=== PATIENT | male | born 1960 | race Caucasian/White ===

== ENCOUNTER 2024-01-02 05:57 | Day surgery (SDC) | payer OTHER, SELFPAY ==
[2023-12-03 08:52] VITALS: BMI 33.3
[2023-12-24 12:08] VITALS: BMI 34.2
[2024-01-02 06:35] VITALS: BP 168/105; PULSE 81; RESP 20; TEMP 37; O2SAT 95
--- NOTE | 2024-01-02 07:03 | PM.HPGS ---
History of Present Illness History of Present Illness Consent: Risks, benefits, and alternatives have been discussed and questions answered. Patient agrees to proceed with procedure. Chief complaint: positive cologuard Narrative: Omar Lockwood is a 63 year old male presents for screening colonoscopy. patient was found to have positive Cologuard test. Patient denies abdominal pain. He he has had no bleeding. Family history noncontributory. Review of Systems Review of Systems: Review of systems is noncontributory. [facility] Social History Social History Smoking status: Never smoker Alcohol intake: never Substance use: never Substance use type: does not use Living arrangements: with family Spiritual care concerns: No Meds Home Medications and Allergies Home Medications Medication Instructions Recorded Confirmed Type sodium,potassium,mag sulfates 17.5 See Rx Instructions PO .COMPLEX 12/03/23 12/24/23 Rx gram-3.13 gram-1.6 gram oral soln #354 mL (Suprep Bowel Prep Kit) aripiprazole 5 mg tablet 5 mg PO DAILY 12/24/23 01/02/24 History bupropion HCl 300 mg 24 hr tablet, 300 mg PO DAILY 12/24/23 01/02/24 History extended release vilazodone 40 mg tablet 40 mg PO DAILY 12/24/23 01/02/24 History hydrocodone 7.5 mg-acetaminophen 1 tablet PO Q6H PRN Pain 01/02/24 01/02/24 History 325 mg tablet Allergies Allergy/AdvReac Type Severity Reaction Status Date / Time No Known Allergies Allergy Verified 01/02/24 06:53 Exam Narrative: Physical is exam reveals patient to be alert. Vital signs stable. HEENT exam is unremarkable. Patient is anicteric. Lungs are clear to auscultation and percussion is without murmur extra sounds. Abdomen bowel sounds are present soft nontender with no organomegaly. Digital external rectal exam normal. Assessment and Plan Assessment and plan (1) Positive colorectal cancer screening using Cologuard test: Code(s): R19.5 - Other fecal abnormalities Status: Acute Assessment and Plan: Patient presents for screening colonoscopy. Recent Cologuard test was found to be positive suggesting higher chance of polyps.
--- NOTE | 2024-01-02 07:18 | P.PNAN_ITS ---
Anes - Initial Pre Proc Eval Procedure: Operation Date: 01/02/24 07:30 Proposed Procedures p Diagnostic Colonoscopy - Omar Baig MD Date/Time: 01/02/24 07:18 Surgeon: Omar Baig MD Pre Op Diagnosis: positive cologuard Patient Data Age: 63 Gender: M Height: 1.73 m Weight: 99.2 kg Allergies Allergy/AdvReac Type Severity Reaction Status Date / Time No Known Allergies Allergy Verified 01/02/24 06:53 Home Medications Medication Instructions Recorded Confirmed Type sodium,potassium,mag sulfates 17.5 See Rx Instructions PO .COMPLEX 12/03/23 12/24/23 Rx gram-3.13 gram-1.6 gram oral soln #354 mL (Suprep Bowel Prep Kit) aripiprazole 5 mg tablet 5 mg PO DAILY 12/24/23 01/02/24 History bupropion HCl 300 mg 24 hr tablet, 300 mg PO DAILY 12/24/23 01/02/24 History extended release vilazodone 40 mg tablet 40 mg PO DAILY 12/24/23 01/02/24 History hydrocodone 7.5 mg-acetaminophen 1 tablet PO Q6H PRN Pain 01/02/24 01/02/24 History 325 mg tablet Patient hx anesthesia problems: none Family hx anesthesia problems: none Results Review: All pre-operative results and documents have been reviewed as part of the pre- operative evaluation. [facility] Past Medical History Medical History (Updated 01/02/24 @ 07:19 by Shola Chauhan MD) Obesity Surgical History Surgical History (Updated 01/02/24 @ 07:19 by Shola Chauhan MD) H/O colonoscopy History of hydrocelectomy Social History Social History Smoking status: Never smoker Alcohol intake: never Substance use: never Substance use type: does not use Living arrangements: with family Spiritual care concerns: No Anes - Eval Final PreProcedure Day of Procedure 01/02/24 07:18 Patient weight: obese Heart: regular rate and rhythm Lungs: clear to auscultation Airway: Mallampati scale class 1 Neurological: alert and oriented Last oral intake: >/= 8 hours ASA classification: II Emergent: no Anesthetic plan: proceed Anesthesia type and monitoring: general GIVS and standard monitoring Results Review: All pre-operative results and documents have been reviewed as part of the pre- operative evaluation. Informed Consent: The patient's anesthetic plan and its attendant risks and benefits were discussed with the patient/family/POA. Questions were solicited and answers provided to the satisfaction of the patient/family/POA.
[2024-01-02] MEDS: LACTATED RINGERS 1,000 ML 150 ML IV CONT (07:30)
[2024-01-02 07:47] VITALS: BP 114/81; PULSE 64; RESP 16; O2SAT 96
[2024-01-02 07:57] VITALS: BP 100/81; PULSE 67; RESP 16; O2SAT 95
[2024-01-02 08:07] VITALS: BP 115/80; PULSE 68; RESP 16; O2SAT 96
--- NOTE | 2024-01-02 08:19 | WPDANESPN ---
Anes - Prog Note Post-Op Date/Time: 01/02/24 08:19 Cardiovascular status: normal Respiratory status: normal Airway patency: baseline Mental status: baseline Post-Op hydration status: normal Vital Signs: Last Vital Signs Temp 37.0 C 01/02/24 06:35 Pulse 68 01/02/24 08:07 Resp 16 01/02/24 08:07 BP 115/80 01/02/24 08:07 Pulse Ox 96 01/02/24 08:07 O2 Del Method Room Air 01/02/24 08:07 Pain Score (VAS): 0/10 I/O: Intake & Output 01/01/24 01/02/24 01/02/24 23:59 07:59 15:59 Intake Total 500 100 Balance 500 100 Patient Feedback: Patient satisfied with anesthetic care.
== END 2024-01-02 08:20 | disposition home or self-care (01) ==
PROVIDERS: Visit Provider Internal Medicine Gastroenterology
PROC: 0DJD8ZZ Inspection of Lower Intestinal Tract, Via Natural or Artificial Opening Endoscopic (ICD-10-PCS; CPT 45378; principal; 2024-01-02 07:30)
DX: R19.5 Other fecal abnormalities (principal); D12.2 Benign neoplasm of ascending colon; D12.3 Benign neoplasm of transverse colon; D12.4 Benign neoplasm of descending colon; K57.30 Diverticulosis of large intestine without perforation or abscess without bleeding; K64.8 Other hemorrhoids
CPT/HCPCS: 45385

== ENCOUNTER 2024-01-02 07:00 | Outpatient (NON) | payer OTHER, SELFPAY | END 2024-01-02 07:01 | disposition home or self-care (01) | PROVIDERS: Visit Provider Internal Medicine Gastroenterology | DX: R19.5 Other fecal abnormalities (principal) | CPT/HCPCS: 88305 ==

== ENCOUNTER 2024-03-05 20:07 | Observation (INO) | payer OTHER, SELFPAY ==
[2024-03-05] VITALS (16 sets, daily range): BP systolic 154–208; BP diastolic 88–96; PULSE 105–125; RESP 8–18; TEMP 36.7–36.8; O2SAT 76–100
--- NOTE | ~2024-03-05 | CT_ITS ---
EXAMINATION: CT brain wo con DATE: 03/05/2024 21:15 INDICATION: Altered mental status. Loss of consciousness. Fall. TECHNIQUE: Computed tomography (CT) of the head was performed without intravenous contrast. The mA wa s adjusted according to patient size. Iterative reconstruction technique was employed. The dose-lengt h product was 681.00 mGy-cm. COMPARISON: None FINDINGS: There is no intracranial hemorrhage, acute infarction, or abnormal intracranial mass lesion . The ventricles are normal in size. The mastoid air cells are normal. There is mild mucosal thickeni ng in the paranasal sinuses. The orbits are normal. There is a possible 7 mm aneurysm of anterior com municating artery. IMPRESSION: 1. Possible 7 mm aneurysm of anterior communicating artery. CTA is recommended. Reviewed, dictated and finalized at location E.
--- NOTE | ~2024-03-05 | XR_ITS ---
EXAMINATION: XR chest 1V portable DATE: 03/05/2024 20:51 INDICATION: Dyspnea. Hypoxia. TECHNIQUE: A single frontal view of the chest was obtained. COMPARISON: None. FINDINGS: There is no pneumonia, pleural effusion, or pneumothorax. The heart size is normal. There a re prominent paracardial fat pads. IMPRESSION: 1. No acute cardiopulmonary disease. Reviewed, dictated and finalized at location E.
--- NOTE | ~2024-03-05 | CT_ITS ---
EXAMINATION: CTA brain carotid DATE: 03/05/2024 22:07 INDICATION: Altered mental status. Cerebral aneurysm. TECHNIQUE: Computed tomographic angiography (CTA) of the head was performed with 100 mL Omnipaque-350 intravenous contrast. CTA of the neck was performed with intravenous contrast. Automated exposure co ntrol and iterative reconstruction technique were employed. The dose-length product was 1122.52 mGy-c m. Maximum intensity projection and volume rendered 3D-reconstructions were created by the [employer] on a separate workstation. COMPARISON: Head CT 03/05/2024 FINDINGS: HEAD CTA: There is no intracranial hemorrhage, acute infarction, or abnormal intracranial mass lesion . The ventricles are normal in size. The mastoid air cells are normal. There is mild mucosal thickeni ng in the paranasal sinuses. The orbits are normal. Right vertebral artery is dominant. There is no s ignificant stenosis of basilar artery or the posterior cerebral arteries. The posterior communicating arteries are normal. There is no significant stenosis of the intracranial internal carotid arteries or anterior or middle cerebral arteries. Anterior communicating artery is normal. There is no aneurys m. NECK CTA: There are no pathologically enlarged lymph nodes. There is no significant stenosis of the v ertebral arteries. There is mild plaque in the proximal internal carotid arteries. There is 0% stenos is of the proximal right internal carotid artery relative to normal distal artery lumen diameter (MAYKEL CET criteria). There is 0% stenosis of the proximal left internal carotid artery relative to normal d istal artery lumen diameter. There is severe cervical spondylosis. IMPRESSION: 1. Normal brain. 2. No aneurysm or significant intracranial calcinosis. 3. 0% stenosis of the proximal internal carotid arteries relative to normal distal artery lumen diame ters (NASCET criteria). Reviewed, dictated and finalized at location E. IMPRESSION: 1. Normal brain. 2. No aneurysm or significant intracranial calcinosis. 3. 0% stenosis of the proximal internal carotid arteries relative to normal dis bradley artery lumen diameters (NASCET criteria).
--- NOTE | 2024-03-05 20:17 | ECG_ITS ---
SEE SCANNED COPY FOR CONFIRMED REPORT MTDD
[2024-03-05] MEDS: NALOXONE HCL 0.4 MG/ML VIAL 0.2 MG IV PUSH ×3 (20:28→21:19)
[2024-03-05 20:32] LABS: Hematocrit 45.1 % (42.0-52.0); Hemoglobin 15.2 g/dL (14.0-18.0); Mean Corpuscular HGB Conc 33.7 g/dl (32-36); Mean Corpuscular Hemoglobin 29.1 pg (26-34); Mean Corpuscular Volume 86.2 fl (80-100); Mean Platelet Volume 9.8 fl (7.4-10.4); Platelet Count Result 426 k/mm3 (150-375); Red Blood Count 5.23 M/mm3 (4.6-6.20); Red Cell Distribution Width 13.3 % (11.5-14.5); White Blood Count 26.7 K/mm3 (4.5-10.0)
--- NOTE | 2024-03-05 20:38 | PC.NURSE ---
Patient presented to staff as altered and upon patient coming into ED room 3 patient was slow to respond and was nodding off with periods of apnea. Patient was A&Ox1 with being aroused to voice and painful stimuli. at bedside states that patient usually beats her home for work and was not present when she got home. said patient's boss called and stated patient was not acting right and fell (patient appears with an abrasion to nose). Patient's initial room air spo2% was 85%. Patient was then placed on 3L/min of oxygen via nasal cannula. Patient's SPO2% was then 88%. Patient was then placed on non-rebreather at 15L/min and had an SPO2% was 100%. EDP Dr. Hernández made aware of patient and advised to give 0.2mg of Narcan IVP. An 18 gauge IV was established in the left forearm and 0.2mg Narcan was administered. Patient became much more aware of surrounding and became A&Ox4 and taken off oxygen and had a SPO2% reading of 98 on room air. Patient states he did not want to hurt himself and denies SI/HI. Patient states he takes [place] 7.5 for his fibromyalgia and had old OxyContin that he took.
[2024-03-05 20:43] LABS: Alanine Aminotransferase 46 U/L (6-50); Albumin Level 4.8 g/dL (3.5-5.1); Alkaline Phosphatase 74 U/L (38-126); Anion Gap 9 mmol/L (4-12); Aspartate Amino Transferase 41 U/L (17-59); Bilirubin,Total 0.8 mg/dL (0.2-1.3); Blood Urea Nitrogen 24 mg/dL (9-20); Calcium 8.9 mg/dL (8.4-10.2); Carbon Dioxide 25 mmol/L (22-30); Chloride 105 mmol/L (98-107); Estimated CRCL calculation 59 ml/min; Estimated Glomerular Filt Rate 51; Glucose 199 mg/dL (65-110); Potassium 4.2 mmol/L (3.4-5.0); Prothrombin Time 13.1 Seconds (11.1-14.7); Sodium 139 mmol/L (137-145)
[2024-03-05 20:44] LABS: Partial Thromboplastin Time 22.9 Seconds (22.3-36.8)
--- NOTE | 2024-03-05 20:48 | ED.OVERDOSE ---
HPI - Overdose General Chief Complaint: Overdose Stated Complaint: altered Time Seen by Provider: 03/05/24 20:20 History of Present Illness HPI Narrative: Patient at work was starting to act strange, he was falling asleep, and then fell hit the ground, it was difficult to wake him up. Brought here, initially hypoxic and bradypneic. Related Data Home Medications Medication Instructions Recorded Confirmed aripiprazole 5 mg tablet 5 mg PO DAILY 12/24/23 01/02/24 bupropion HCl 300 mg 24 hr tablet, 300 mg PO DAILY 12/24/23 01/02/24 extended release vilazodone 40 mg tablet 40 mg PO DAILY 12/24/23 01/02/24 hydrocodone 7.5 mg-acetaminophen 1 tablet PO Q6H PRN Pain 01/02/24 01/02/24 325 mg tablet Allergies Allergy/AdvReac Type Severity Reaction Status Date / Time No Known Allergies Allergy Verified 01/02/24 06:53 Review of Systems Review of Systems: ROS unobtainable: Yes unobtainable due to mental status [facility] Past Medical History Medical History (Updated 03/05/24 @ 23:09 by Tianna Hernández MD) Obesity Surgical History Surgical History (Updated 01/02/24 @ 07:19 by Shola Chauhan MD) H/O colonoscopy History of hydrocelectomy Social History Social History Smoking status: Never smoker Alcohol intake: never Substance use: never Substance use type: prescription drug Living arrangements: with family Spiritual care concerns: No Exam Narrative: EXAMINATION OF ORGAN SYSTEMS/BODY AREAS: Constitutional: Vital signs per nursing GENERAL: Sleeping HEAD: Some dry blood to nose EYES: Pinpoint pupils ENT: Some dried blood to the bridge of nose LUNGS: Decreased respirations HEART: Tachycardic ABD: [Soft], [nontender to palpation] EXT: No obvious deformity SKIN: Tiny abrasion nasal bridge NEURO: [Sleeping but will arouse to physical stimulus then fall back asleep. No gross focal sensory or strength deficits.] Course Vital Signs Vital signs: Vital Signs Temperature 98.1 F 03/05/24 20:08 Pulse Rate 122 H 03/05/24 20:08 Respiratory Rate 12 03/05/24 20:08 Blood Pressure 158/94 H 03/05/24 20:08 Pulse Oximetry 76 L 03/05/24 20:08 Oxygen Delivery Room Air 03/05/24 20:08 Temperature 98.3 F 03/05/24 20:14 Pulse Rate 111 H 03/05/24 22:42 Respiratory Rate 12 03/05/24 22:42 Blood Pressure 202/93 H 03/05/24 22:42 Pulse Oximetry 95 03/05/24 22:46 Oxygen Delivery Nasal Cannula 03/05/24 22:46 Oxygen Flow Rate 3 03/05/24 22:46 MDM - Overdose MDM Narrative Medical decision making narrative: Patient presents with AMS/very sleepy, hypoxic, hypertensive, tachycardic, on exam pinpoint pupils and falling asleep waking only to painful stimulus than falling back asleep. Ddx incl opiate OD, CVA, endocrine emergency. Patient responded immediately to narcan; reports taking old oxycodones (1.5-2 tabs of his old 10mg oxy). Denies taking any other illicit drugs; denies overdosing on his own anxiety/depression meds; denies wanting to hurt himself or purposely trying to overdose. CT brain c/f possible aneurysm, CTA obtained is normal. Patient became apneic again required another dose of narcan. Then after 40 min, another dose. At this time I did feel he needed narcan gtt and adm to ICU. D/w Dr Gonzalez ICU, Dr Clarke hospitalist, discussed diagnosis and plan with patient and at bedside. Rpt VS improved with HR 108, O2 94%, BP 166/99. Lab Data 03/05/24 20:25 03/05/24 20:25 Labs: Lab Results 03/05/24 03/05/24 Range/Units 20:25 22:40 WBC 26.7 H (4.5-10.0) K/mm3 RBC 5.23 (4.6-6.20) M/mm3 Hgb 15.2 (14.0-18.0) g/dL Hct 45.1 (42.0-52.0) % MCV 86.2 (80-100) fl MCH 29.1 (26-34) pg MCHC 33.7 (32-36) g/dl RDW 13.3 (11.5-14.5) % Plt Count 426 H (150-375) k/mm3 MPV 9.8 (7.4-10.4) fl Immature Gran % (Auto) Not Reportable Ne
[2024-03-05 20:54] LABS: Band Neutrophils Percent 3 % (0-6); Eosinophils Absolute Manual 0.26 K/mm3 (0.02-0.50); Eosinophils Percent Manual 1 % (0-4); Lymphocytes Absolute Manual 2.67 K/mm3 (1.1-4.5); Monocytes Absolute Manual 0.26 K/mm3 (0.1-0.90); Monocytes Percent Manual 1 % (3-9); Neutrophils Absolute Manual 23.49 K/mm3 (1.3-6.7); Neutrophils Percent Manual 85 % (46-73); Total Cells Counted 100
[2024-03-05 20:58] LABS: Platelet Estimate Increased (Adequate)
[2024-03-05 20:59] LABS: Anisocytosis 1+; Large Platelets Present; Schistocytes None Seen; Stomatocytes 1+
[2024-03-05] MEDS: LACTATED RINGERS 1,000 ML 999 ML IV CONT (20:59)
--- NOTE | 2024-03-05 20:59 | PC.NURSE ---
Patient began to drop down to low 80's SPO2 and was nodding off again. Per EDP Dr. Hernández administer 0.2mg more of Narcan IVP. Once Narcan was administered patient was becoming more alert again.
[2024-03-05 21:16] LABS: Acetaminophen < 10 ug/mL (10-30); Ethanol < 10 mg/dL (<10); Salicylate < 1.0 mg/dL (2-20)
--- NOTE | 2024-03-05 21:21 | PC.NURSE ---
Patient began to have periods of apnea and dropped down to 77% SPO2 on RA. Patient was then administered 0.2mg IVP Narcan per VRBO from EDP Dr. Hernández. Patient began to become more responsive and RR was 16 and SPO2 94% on RA.
--- NOTE | 2024-03-05 21:23 | PC.NURSE ---
Per EDP Dr. Betty VELAZQUEZ a Narcan drip at standard rate.
[2024-03-05 23:16] LABS: Amphetamine Screen Urine Negative (Negative); Barbiturate Screen Urine Negative (Negative); Benzodiazepines Screen Urine Negative (Negative); Cannabinoid Screen Urine Negative (Negative); Cocaine Screen Urine Negative (Negative); Methadone Screen Urine Negative (Negative); Opiate Screen Urine Positive (Negative); Phencyclidine Screen Urine Negative (Negative)
[2024-03-05 23:56] LABS: Appearance Urine Clear (Clear); Bacteria Urine None Seen /hpf; Bilirubin Urine Negative (Negative); Blood Urine 1+ (Negative); Color Urine Yellow (Yellow); Glucose Urine UA Trace mg/dL (Negative); Ketones Urine Trace mg/dL (Negative); Leukocyte Esterase Ur Negative LEU/UL (Negative); Need Manual Microscopic Reviewed; Nitrate Urine Negative (Negative); Protein Urine Trace mg/dL (Negative); Specific Grav Ur 1.027 (1.001-1.035); Squamous Epithelial Cell Urine None Seen /hpf (Few); WBC Urine 0-5 /hpf (0-3); pH Urine 5.5 (5.0-9.0)
[2024-03-05 23:58] LABS: Add Urine Microscopic? YES
[2024-03-06] VITALS (10 sets, daily range): BP systolic 128–167; BP diastolic 72–92; PULSE 77–109; RESP 10–18; TEMP 36.6–37; O2SAT 92–98; BMI 34.4
--- NOTE | 2024-03-06 00:16 | PM.IMHP ---
H&P: HPI History of Present Illness Date/Time: 03/06/24 00:16 Chief Complaint: Drug overdose Narrative: Mr. Lockwood is a pleasant 64-year-old male with a past medical history obesity, Vitamin-D deficiency, depression, fibromyalgia, BPH who presents with drug overdose. His Emmy is present and supplies much of the information as well as the patient himself and chart documentation. This story is as follows: the patient has had fibromyalgia for many years and takes a [place] tablet 4 times a day. He also takes Abilify and Bupropion once daily for depression. He does not smoke, nor takes illicit drugs, and only rarely drinks alcohol. The patient was working at his job at an [employer] shop and his boss noticed him to be very weak and tired. At one point the patient left a cabinet open and hit his nose on it. He does not report falling or passing out. Around 6:00 p.m. his boss notified Emmy about the patient's status. At that point in time he had taken 3 of his [place] and 1 oxycodone which he still had from when he was taking that prior to being switched to [place]. [place] ER evaluation revealed hypertension tachycardia bradypnea and a very somnolent man requiring naloxone 0.2 mg IV push x3. He was noted to be falling asleep and with pinpoint pupils and at times requiring 1-2 L of nasal cannula. an EKG was performed however due to system complications I am unable to view that. leukocytosis. Serum creatinine 1.4. LFTs within normal limits. Urinalysis not indicative of infection. Chest x-ray without acute findings. Head and neck CTA without acute findings. Decision made to admit the patient to ICU for Narcan GTT. Mold Inspector notified. Upon my evaluation in ICU room 10 the patient is very forthcoming denies any attempt to hurt himself or any suicidal ideation. He has never had suicide ideation before. He is adamant he did not take additional pills aside from the oxycodone described above. Review of Systems Review of Systems: All systems reviewed & are unremarkable except as noted in HPI and below ( Subjective) [facility] Past Medical History Medical History (Updated 03/06/24 @ 00:30 by Renee Clarke MD) Obesity Surgical History Surgical History (Updated 01/02/24 @ 07:19 by Shola Chauhan MD) H/O colonoscopy History of hydrocelectomy Family History Family History (Updated 03/06/24 @ 00:14 by Taz Castillo RN) Mother Lung cancer Other Throat cancer Grandparent Cancer Social History Social History Smoking status: Never smoker Alcohol intake: never Substance use: never Substance use type: prescription drug Living arrangements: with family Spiritual care concerns: No Meds Home Medications and Allergies Home Medications Medication Instructions Recorded Confirmed Type aripiprazole 5 mg tablet 5 mg PO DAILY 12/24/23 01/02/24 History bupropion HCl 300 mg 24 hr tablet, 300 mg PO DAILY 12/24/23 01/02/24 History extended release hydrocodone 7.5 mg-acetaminophen 1 tablet PO Q6H PRN Pain 01/02/24 01/02/24 History 325 mg tablet ergocalciferol (vitamin D2) 1,250 1,250 mcg PO WEEKLY 03/06/24 03/06/24 History mcg (50,000 unit) capsule testosterone cypionate 200 mg/mL 200 mg IM [id number] 03/06/24 03/06/24 History intramuscular oil Allergies Allergy/AdvReac Type Severity Reaction Status Date / Time No Known Allergies Allergy Verified 01/02/24 06:53 Vital Signs Vital Signs - 24 hr 03/05/24 20:08 03/05/24 20:14 03/05/24 20:29 Temperature 98.1 F 98.3 F Pulse Rate 122 H 125 H Respiratory Rate 12 8 L 8 L Blood Pressure 158/94 H 195/93 H Pulse Oximetry 76 L 99 Oxygen Delivery Room Air Non-Rebreather Mask Oxygen Flow Rate 15 03/05/24 20:30 03/05/24 20:31 03/05/24 20:32 Temperature Pulse Rate 122 H Respiratory Rate Blood Pressure Pulse Oximetry 99 96 Oxygen Delivery Non-Rebreather Mas
--- NOTE | 2024-03-06 00:20 | ADMGEN ---
This patient, Omar Lockwood, was admitted to Intensive Care Unit-10. Patient/family oriented to hospital policies and general routines including ID bracelet, bed and alarms, visiting hours, pain management, procedures, bathroom and other care routines, personal items, smoking policy, room service/diet, and visiting hours. Information on how to activate the Rapid Response Team has been discussed. Patient/Family are encouraged to report perceived risks to care and to ask questions if they do not understand what they are told or what they should do.
[2024-03-06] MEDS: SODIUM CHLORIDE 0.9% IV 1,000 ML 100 ML IV CONT (00:48)
[2024-03-06 04:53] LABS: Basophils Absolute Auto 0.1 K/mm3 (0.0-0.1); Basophils Percent Auto 0.4 % (0.2-1.2); Eosinophils Percent Auto 0.1 % (0-4.4); Hematocrit 40.8 % (42.0-52.0); Hemoglobin 13.3 g/dL (14.0-18.0); Immature Granulocyte Absolute 0.17 K/mm3 (0.00-0.031); Immature Granulocyte Percent A 0.9 % (0-0.5); Lymphocytes Absolute Auto 2.02 K/mm3 (0.9-3.2); Lymphocytes Percent Auto 10.9 % (18.3-44.2); Mean Corpuscular HGB Conc 32.6 g/dl (32-36); Mean Corpuscular Hemoglobin 28.9 pg (26-34); Mean Corpuscular Volume 88.7 fl (80-100); Mean Platelet Volume 9.9 fl (7.4-10.4); Monocytes Absolute Auto 1.3 K/mm3 (0.1-0.6); Monocytes Percent Auto 6.8 % (2.6-8.5); Neutrophils Percent Auto 80.9 % (45.5-73.1); Platelet Count Result 325 k/mm3 (150-375); Red Cell Distribution Width 13.6 % (11.5-14.5); White Blood Count 18.6 K/mm3 (4.5-10.0)
[2024-03-06 05:03] LABS: Alanine Aminotransferase 37 U/L (6-50); Albumin Level 4.3 g/dL (3.5-5.1); Alkaline Phosphatase 59 U/L (38-126); Anion Gap 6 mmol/L (4-12); Aspartate Amino Transferase 30 U/L (17-59); Bilirubin,Total 0.8 mg/dL (0.2-1.3); Blood Urea Nitrogen 21 mg/dL (9-20); Calcium 8.9 mg/dL (8.4-10.2); Carbon Dioxide 27 mmol/L (22-30); Chloride 105 mmol/L (98-107); Estimated CRCL calculation 81 ml/min; Estimated Glomerular Filt Rate > 60; Glucose 108 mg/dL (65-110); Magnesium 2.3 mg/dL (1.6-2.3); Sodium 138 mmol/L (137-145)
[2024-03-06 05:31] LABS: Procalcitonin 0.1 ng/mL
--- NOTE | 2024-03-06 06:31 | PC.NURSE ---
Mengan GTT at starting rate and O2 down to 1L. I discussed this with Dr. Clarke and was instructed to leave at current rate until the screw machine adjuster automatic can round on him this morning.
--- NOTE | 2024-03-06 08:37 | WPDCNINT ---
Assessment and Plan Assessment and plan (1) Opiate overdose: Qualifiers: Injury intent: accidental or unintentional Code(s): T40.601A - Poisoning by unspecified narcotics, accidental (unintentional), initial encounter Status: Acute Assessment and Plan: Patient presented with somnolence, pinpoint pupils creatinine depressed respiratory status, likely related to narcotic overdose urine -according the patient he normally takes [place] for his fibromyalgia but he also took some oxycodone which was left over from the time it was switched to [place] by his medical imaging technician. Patient presented to the ER with the above findings -patient received 3 doses of Narcan at separate occasions due to somnolence and depressed respiratory status. ER physician decided to place patient on Narcan infusion and he was transferred to the ICU for further management -this morning patient is awake, alert, oriented x3 -Narcan infusion has been discontinued -will monitor patient off the Narcan infusion (2) MARCI (acute kidney injury): Code(s): N17.9 - Acute kidney failure, unspecified Status: Acute Assessment and Plan: Acute kidney injury likely related to hypovolemia, narcotics. Creatinine 1.40 on admission -patient received IV fluid bolus in the ER and currently on maintenance IV fluids -creatinine has improved to 1.00 this morning -continue maintenance IV fluids for now, once patient is eating and drinking well will DC maintenance IV fluid -monitor urine output, renal function and electrolytes (3) Leukocytosis: Code(s): D72.829 - Elevated white blood cell count, unspecified Status: Acute Assessment and Plan: Leukocytosis likely related to stress response -patient currently afebrile -leukocytosis improving, will continue to (4) Acute hypoxic respiratory failure: Code(s): J96.01 - Acute respiratory failure with hypoxia Status: Acute Assessment and Plan: Depressed respiratory status and hypoxia secondary to opioid overdose -continue supplemental oxygen and wean as tolerated (5) Fibromyalgia: Code(s): M79.7 - Fibromyalgia Status: Acute Assessment and Plan: History of fibromyalgia, follows with a medical imaging technician (Dr. Loza) at [facility]. -on [place] for his fibromyalgia and pain symptoms (6) Depression: Code(s): F32.A - Depression, unspecified Status: Acute Assessment and Plan: On Abilify and bupropion at home, -will start later today once he maintains wakefulness Plan DVT prophylaxis: SCDs, up in chair Stress ulcer prophylaxis: Not indicated Nutrition: Regular diet Code Status: Full code Critical Care Time Spent: 46 minutes Discussed with patient and his spouse at bedside and updated them with patient's condition and plan of care. I answered all questions Due to a high probability of clinically significant, life threatening deterioration, the patient required my highest level of preparedness to intervene emergently and I personally spent this critical care time directly and personally managing the patient. This critical care time included obtaining a history; examining the patient; pulse oximetry; ordering and review of studies; arranging urgent treatment with development of a management plan; evaluation of patient's response to treatment; frequent reassessment; and discussions with other providers. It was exclusive of separately billable procedures and treating other patients and teaching time. Please see Assessment and Plan section and the rest of the note for further information on patient assessment and treatment This dictation may have been done utilizing a voice recognition system. Attempts have been made to correct errors. However, there may be uncorrected grammatical, spelling, and recognitions errors present. Front Desk Monitor Consult Note Consult date: 03/06/24 Reason for consult: Narcotic overdos
--- NOTE | 2024-03-06 13:08 | PM.IMPN ---
Progress Note: A&P Assessment and Plan (1) Depression: Code(s): F32.A - Depression, unspecified Status: Acute (2) Fibromyalgia: Code(s): M79.7 - Fibromyalgia Status: Acute (3) MARCI (acute kidney injury): Code(s): N17.9 - Acute kidney failure, unspecified Status: Acute (4) Leukocytosis: Code(s): D72.829 - Elevated white blood cell count, unspecified Status: Acute (5) Opiate overdose: Qualifiers: Injury intent: accidental or unintentional Code(s): T40.601A - Poisoning by unspecified narcotics, accidental (unintentional), initial encounter Status: Acute (6) Acute hypoxic respiratory failure: Code(s): J96.01 - Acute respiratory failure with hypoxia Status: Acute (7) Positive colorectal cancer screening using Cologuard test: Code(s): R19.5 - Other fecal abnormalities Status: Acute (8) Encounter for screening colonoscopy: Code(s): Z12.11 - Encounter for screening for malignant neoplasm of colon Status: Acute Plan (1) Opiate overdose: ?Qualifiers: ?Injury intent:?accidental or unintentional ?Code(s): T40.601A - Poisoning by unspecified narcotics, accidental (unintentional), initial encounter ?Status:?Acute ?Assessment and Plan: Patient presented with somnolence, pinpoint pupils creatinine depressed respiratory status, likely related to narcotic overdose urine -according the patient he normally takes [place] for his fibromyalgia but he also took some oxycodone which was left over from the time it was switched to [place] by his cutter first.? Patient presented to the ER with the above findings -patient received 3 doses of Narcan at separate occasions due to somnolence and depressed respiratory status.? ER physician decided to place patient on Narcan infusion and he was transferred to the ICU for further management -this morning patient is awake, alert, oriented x3 -Narcan infusion has been discontinued 03/06 : patient is alert oriented x3 , no focal weakness, no abnormal sensation (2) MARCI (acute kidney injury): ?Code(s): N17.9 - Acute kidney failure, unspecified ?Status:?Acute ?Assessment and Plan: Acute kidney injury likely related to hypovolemia, narcotics.? Creatinine 1.40 on admission -patient received IV fluid bolus in the ER and currently on maintenance IV fluids -creatinine has improved to 1.00 this morning -continue maintenance IV fluids for now, once patient is eating and drinking well will DC maintenance IV fluid -monitor urine output, renal function and electrolytes 03/06: MARCI has resolved, BUN 21, creatinine 1.0, (3) Leukocytosis: ?Code(s): D72.829 - Elevated white blood cell count, unspecified ?Status:?Acute ?Assessment and Plan: Leukocytosis likely related to stress response -patient currently afebrile -leukocytosis improving no sign of infections f/u PCP, recommend patient come back to ED if patient will have fever (4) Acute hypoxic respiratory failure: ?Code(s): J96.01 - Acute respiratory failure with hypoxia ?Status:?Acute ?Assessment and Plan: Depressed respiratory status and hypoxia secondary to opioid overdose -continue supplemental oxygen and wean as tolerated 03/06: resolved, no O2 desaturation on room air (5) Fibromyalgia: ?Code(s): M79.7 - Fibromyalgia ?Status:?Acute ?Assessment and Plan: History of fibromyalgia, follows with a cutter first (Dr. Loza) at [facility]. -on [place] for his fibromyalgia and pain symptoms started Cymbalta 20 mg b.i.d. p.o. (6) Depression: ?Code(s): F32.A - Depression, unspecified ?Status:?Acute ?Assessment and Plan: On Abilify and bupropion at home, stable patient family request to be discharged. per prep cook and my evaluation, patient is ready to be discharged home today Subjective Date/time see
--- NOTE | 2024-03-06 13:13 | PM.DS ---
DS: Admitting Diagnosis Discharge Date 03/06/24 Admitting Diagnosis (1) Depression: ?Code(s): F32.A - Depression, unspecified ?Status:?Acute (2) Fibromyalgia: ?Code(s): M79.7 - Fibromyalgia ?Status:?Acute (3) MARCI (acute kidney injury): ?Code(s): N17.9 - Acute kidney failure, unspecified ?Status:?Acute (4) Leukocytosis: ?Code(s): D72.829 - Elevated white blood cell count, unspecified ?Status:?Acute (5) Opiate overdose: ?Qualifiers: ?Injury intent:?accidental or unintentional ?Code(s): T40.601A - Poisoning by unspecified narcotics, accidental (unintentional), initial encounter ?Status:?Acute (6) Acute hypoxic respiratory failure: ?Code(s): J96.01 - Acute respiratory failure with hypoxia ?Status:?Acute (7) Positive colorectal cancer screening using Cologuard test: ?Code(s): R19.5 - Other fecal abnormalities ?Status:?Acute (8) Encounter for screening colonoscopy: ?Code(s): Z12.11 - Encounter for screening for malignant neoplasm of colon ?Status:?Acute DS: Discharge Diagnosis Discharge Diagnosis (1) Depression: Code(s): F32.A - Depression, unspecified Status: Acute (2) Fibromyalgia: Code(s): M79.7 - Fibromyalgia Status: Acute (3) MARCI (acute kidney injury): Code(s): N17.9 - Acute kidney failure, unspecified Status: Acute (4) Leukocytosis: Code(s): D72.829 - Elevated white blood cell count, unspecified Status: Acute (5) Opiate overdose: Qualifiers: Injury intent: accidental or unintentional Code(s): T40.601A - Poisoning by unspecified narcotics, accidental (unintentional), initial encounter Status: Acute (6) Acute hypoxic respiratory failure: Code(s): J96.01 - Acute respiratory failure with hypoxia Status: Acute (7) Positive colorectal cancer screening using Cologuard test: Code(s): R19.5 - Other fecal abnormalities Status: Acute (8) Encounter for screening colonoscopy: Code(s): Z12.11 - Encounter for screening for malignant neoplasm of colon Status: Acute DS: Summary Hospital Course Hospital Course: Mr. Lockwood is a pleasant 64-year-old male with a past medical history obesity, Vitamin-D deficiency, depression, fibromyalgia, BPH who presents with drug overdose. His Emmy is present and supplies much of the information as well as the patient himself and chart documentation.? This story is as follows:? the patient has had fibromyalgia for many years and takes a [place] tablet 4 times a day.? He also takes Abilify and Bupropion once daily for depression.? He does not smoke, nor takes illicit drugs, and only rarely drinks alcohol.? The patient was working at his job at an [employer] and his boss noticed him to be very weak and tired. At one point the patient left a cabinet open and hit his nose on it.? He does not report falling or passing out.? Around 6:00 p.m. his boss notified Emmy about the patient's status.? At that point in time he had taken 3 of his [place] and 1 oxycodone which he still had from when he was taking that prior to being switched to [place]. [place] ER evaluation revealed? hypertension tachycardia bradypnea? and a very somnolent man requiring naloxone 0.2 mg IV push x3.? He was noted to be falling asleep and with pinpoint pupils and at times requiring 1-2 L of nasal cannula. an EKG was performed however due to system complications I am unable to view that. ? leukocytosis.? Serum creatinine 1.4.? LFTs within normal limits.? Urinalysis not indicative of infection.? Chest x-ray without acute findings. Head and neck CTA without acute findings. Decision made to admit the patient to ICU for Narcan GTT.? Continuous Dryout Operator Helper notified.? Upon my evaluation in ICU room 10 the patient is very forthcoming denies any attempt to hurt himself or any suicidal ideation.? He has never had suicide ideation before.? He
--- NOTE | 2024-03-14 14:19 | PCCARD ---
EKG ORDERED 03/06/24 @00:14 DOES NOT APPEAR TO HAVE BEEN DONE - CARDIAC TELEMETRY MONITORING WAS CHARTED IN PATIENT CARE. CANCELLED EKG ORDER NOT DONE
== END 2024-03-06 14:25 | disposition home or self-care (01) ==
LOC: ANHED 23:09 → ANHICU 23:41
PROVIDERS: Admitting Provider General Practice; Emergency Provider Emergency Medicine; PCP Nurse Practitioner Family; Visit Provider Hospitalist
DX: T40.601A Poisoning by unspecified narcotics, accidental (unintentional), initial encounter (principal); J96.01 Acute respiratory failure with hypoxia; N17.9 Acute kidney failure, unspecified; I10 Essential (primary) hypertension; R00.0 Tachycardia, unspecified; R94.31 Abnormal electrocardiogram [ECG] [EKG]; E55.9 Vitamin D deficiency, unspecified; S00.31XA Abrasion of nose, initial encounter; W19.XXXA Unspecified fall, initial encounter; F32.A Depression, unspecified; M79.7 Fibromyalgia; N40.0 Benign prostatic hyperplasia without lower urinary tract symptoms; E66.9 Obesity, unspecified; Z68.34 Body mass index [BMI] 34.0-34.9, adult; Z79.891 Long term (current) use of opiate analgesic; Z79.899 Other long term (current) drug therapy
CPT/HCPCS: 36415; 70450; 70496; 70498; 71045; 80053; 80307; 81001; 83735; 84145; 85025; 85610; 85730; 93005; 96365; 96366; 96376; 99285; G0378; J2310; J7030; J7050; J7120; Q9967